=== PATIENT | female | born 1960 | race Caucasian/White ===

== ENCOUNTER 2018-12-02 11:27 | Emergency (ER) | payer OTHER ==
[2018-12-02 13:34] LABS: ADD MAN DIFF? NO
[2018-12-02 13:39] LABS: BASOPHIL # 0.1 10^3/ul (0.0-0.1); BASOPHILS % 0.6 % (0.0-2.0); EOSINOPHILS # 0.1 10^3/ul (0.0-0.5); EOSINOPHILS % 0.8 % (0.0-7.0); HEMATOCRIT 42.5 % (37.0-47.0); HEMOGLOBIN 13.9 g/dl (12.0-16.0); LYMPHOCYTES # 3.1 10^3/ul (0.8-2.9); LYMPHOCYTES % 30.3 % (15.0-51.0); MEAN CORPUSCULAR HEMOGLOBIN 28.8 pg (29.0-33.0); MEAN CORPUSCULAR HGB CONC 32.7 g/dl (32.0-37.0); MEAN CORPUSCULAR VOLUME 88.2 fl (82.0-101.0); MEAN PLATELET VOLUME 10.3 fl (7.4-10.4); MONOCYTE # 0.8 10^3/ul (0.3-0.9); MONOCYTES % 7.9 % (0.0-11.0); NEUTROPHILS % 59.8 % (39.0-77.0); PLATELET COUNT 219 10^3/UL (140-415); RED BLOOD COUNT 4.82 10^6/ul (4.20-5.40); RED CELL DISTRIBUTION WIDTH 13.7 % (11.5-14.5)
[2018-12-02 13:39] LABS: WHITE BLOOD COUNT 10.1 10^3/ul (4.8-10.8)
[2018-12-02 13:59] LABS: ALANINE AMINOTRANSFERASE 23 IU/L (13-69); ALBUMIN 4.5 g/dl (3.3-4.9); ALBUMIN/GLOBULIN RATIO 1.02; ALKALINE PHOSPHATASE 121 IU/L (42-121); ANION GAP 10 (5-13); ASPARTATE AMINO TRANSFERASE 29 IU/L (15-46); BLOOD UREA NITROGEN 16 mg/dl (7-20); CALCIUM 9.9 mg/dl (8.4-10.2); CARBON DIOXIDE 26 mmol/L (21-31); CHLORIDE 107 mmol/L (97-110); CREATININE 0.61 mg/dl (0.44-1.00); Estimated GFR > 60 mL/min (>60); GLUCOSE 109 mg/dl (70-220); LIPASE 47 U/L (23-300); POTASSIUM 4.1 mmol/L (3.5-5.1); SODIUM 143 mmol/L (135-144); TOTAL PROTEIN 8.9 g/dl (6.1-8.1)
[2018-12-02 14:07] LABS: INR 0.87; PROTIME 11.9 Sec (11.9-14.9); PT RATIO 0.9
[2018-12-02 14:08] LABS: TROPONIN-I < 0.012 ng/ml (0.000-0.120)
[2018-12-02 14:35] LABS: D-DIMER 332.13 ng/ml (<460)
[2018-12-02 16:08] LABS: TROPONIN-I < 0.012 ng/ml (0.000-0.120)
== END 2018-12-03 06:23 | disposition home or self-care (01) ==
LOC: E/R 12-03 06:23
DX: R07.9 Chest pain, unspecified (principal); E03.9 Hypothyroidism, unspecified
CPT/HCPCS: 36415; 71045; 80053; 83690; 84484; 85025; 85378; 85610; 93005; 99285-25